=== PATIENT | male | born 1965 | race Caucasian/White ===

== ENCOUNTER 2019-02-07 10:45 | Inpatient (IN) ==
--- NOTE | 2019-02-07 12:32 | Diag Imaging Result Doc PS360 ---
EXAM: US SCROTUM HISTORY: R/O torsion TECHNIQUE: Scrotal ultrasound COMPARISON: None. FINDINGS: Normal size and echotexture to each testicle. No testicular mass. Blood flow is symmetric. Small left hydrocele. There are several left epididymal cysts. The largest measures 9 mm. The epididymis is enlarged with increased flow. There is also a 1.3 cm right epididymal cyst. The right epididymis is not enlarged. IMPRESSION: Left-sided epididymitis Electronically signed by Zack Story 02/07/2019 12:29 PM
[2019-02-07] MEDS: TORADOL IV PRN ×2 (12:36→18:55)
[2019-02-07] MEDS: LEVAQUIN 500 MG/D5W 500 MG/100 ML IVPB IV SCH (12:36)
[2019-02-07] MEDS: NS 1,000 ML IV SCH (12:36)
[2019-02-07] MEDS: XANAX PO PRN (12:41)
[2019-02-07] MEDS: CATAPRES PO SCH ×2 (12:41→21:59)
[2019-02-07 12:53] LABS: HEMATOCRIT 40.3 % (42.0-52.0); HEMOGLOBIN 13.6 g/dL (14.0-18.0); MCH 28.3 PG (27-31); MCHC 33.7 g/dL (33-37); MCV 83.8 FL (81-99); MPV 9.3 FL (7.4-10.4); RBC 4.81 XMIL (4.7-6.1); RDW 13.6 % (11.5-14.5); WBC 25.09 X1000 (4.8-10.8)
[2019-02-07 13:15] LABS: AGAP 16; BUN 11 mg/dL (8-22); C REACTIVE PROT QUANT 37.63 mg/L (0.00-5.00); CALCIUM 9.2 mg/dL (8.8-10.2); CHLORIDE 95 mmol/L (98-107); COSMO 266; CREATININE 0.8 mg/dL (0.7-1.2); ESTIMATED GFR > 60; GLUCOSE 129 mg/dL (70-104); POTASSIUM 3.3 mmol/L (3.5-5.1); SODIUM 132 mmol/L (136-145); TCO2 21 mmol/L (25-35)
[2019-02-07] MEDS: POTASSIUM CHLORIDE 20 MEQ/SWI 20 MEQ/100 ML IVPB IV SCH ×2 (16:45→20:48)
[2019-02-07] MEDS ORDERED: SODIUM CHLORIDE 0.9% INJ SCH (21:30)
[2019-02-07] MEDS: LOVENOX SUBQ SCH (21:59)
[2019-02-07] MEDS: NICODERM PATCH TD PRN (21:59)
[2019-02-07] MEDS: PEPCID IV SCH (21:59)
--- NOTE | 2019-02-07 22:01 | HISTORY AND PHYSICAL ---
CHIEF COMPLAINT: Sudden onset of left testicle swelling and pain. HISTORY OF PRESENT ILLNESS: He is a 53-year-old white male who basically came to my office this morning, unable to get out of the parking lot. I was called to see the patient in the car. The patient complains of 1 day history of left testicle pain. It is swollen, obviously tender, admitted directly for left testicular pain, possible epididymitis, rule out torsion. After workup, the laboratory data shows white cell count 25,000, he was dehydrated, and ultrasound showed no torsion. Basically, admitted to the hospital for IV fluids, replace the potassium, IV antibiotics, elevation of the testicle to relieve the pain, along with a Toradol shot. As a result, a hospital admission was warranted. PAST MEDICAL HISTORY: 1. Hypertension. 2. Generalized anxiety disorder. 3. Nicotine dependency. 4. History of nontraumatic ruptured biceps tendon. 5. Right and left umbilical hernia. PAST SURGICAL HISTORY: None. ALLERGIES: Not known. MEDICATIONS: Reported: 1. Xanax 2 mg t.i.d. as needed. 2. Clonidine 0.1 mg p.o. b.i.d. 3. Aripiprazole 5 mg daily. 4. Zoloft 100 mg daily. 5. Protonix 40 mg daily. 6. Lisinopril 20 mg daily. SOCIAL HISTORY: ; 3 kids. 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 Lives in [place]. Smoking 1 pack per day. No alcohol. FAMILY HISTORY: Father is 69 years old with hypertension. Mom is diabetic. Last physical in my office in 2015. Last PSA in 2014. Colonoscopy in November 2014. REVIEW OF SYSTEMS: HEENT: No headache, no dizziness, no earache, no sore throat. Neck: No goiter, no lymphadenopathy, no bruit. Cardiopulmonary: No chest pain, shortness of breath, PND, orthopnea. GI: No nausea, vomiting, abdominal pain. Umbilical hernia noted. : Severe left testicle pain, 1 day duration. No dysuria. No BPH symptoms. Extremities: No swelling of legs. No joint pain. Neurologic: No focal symptoms or weakness. PHYSICAL EXAMINATION: VITAL SIGNS: 6 feet 1 inch. 169 pounds. Temperature is 98.6 degrees, pulse 95, blood pressure 158/98. HEENT: Atraumatic, normocephalic. Pupils equal, react to light. TMs are normal. Dry mucous membranes. NECK: Supple. No lymphadenopathy. No goiter. CHEST: Bilateral air entry. HEART: Sounds are regular, tachycardic. ABDOMEN: Belly is soft, nontender. Umbilical hernia present. GENITALIA: Left testicle diffusely swollen, tender. Unable to do detailed exam for transillumination due to excruciating pain. NEUROLOGIC: No neurological deficits. INVESTIGATIONS: CBC: White cell count 25, hematocrit 40, platelets 331,000. Sodium 132, potassium 3.3, BUN 11, creatinine 0.8, glucose 128. Urine cultures are pending. Ultrasound of the reported left-sided epididymitis: Small left hydrocele noted. ASSESSMENT AND PLAN: A 53-year-old white male admitted to the hospital with: 1. Excruciating left-sided pain with epididymitis, associated with leukocytosis, dehydration. Plan is intravenous fluids. Replace the potassium. Intravenous Levaquin. Pain control with Toradol. 2. Bipolar disorder, anxiety, under the care of Dr. Christian with Zoloft, Xanax, aripiprazole. 3. Hypertension, on clonidine and lisinopril. 4. Deep venous thrombosis and gastrointestinal prophylaxis as per the order sheet. 5. Follow up.. cc: Yohannes Flores MD
[2019-02-08] MEDS: NS 1,000 ML IV SCH ×2 (01:01→16:24)
[2019-02-08] MEDS: TORADOL IV PRN ×2 (04:03→16:25)
[2019-02-08 07:45] LABS: BASO% 0.1 % (0.0-0.8); EOS% 0.1 % (0.0-10.0); HEMATOCRIT 40.4 % (42.0-52.0); HEMOGLOBIN 13.4 g/dL (14.0-18.0); IMM GRAN% 0.3 % (0.0-0.5); LYMPH# 1.94 X1000 (1.2-3.4); LYMPH% 7.1 % (20.5-51.1); MCHC 33.2 g/dL (33-37); MCV 84.5 FL (81-99); MONO# 1.08 X1000 (0.11-0.59); MPV 9.5 FL (7.4-10.4); NEUT# 24.01 X1000 (1.4-6.5); NEUT% 88.4 % (42.2-75.2); PLT 299 X1000 (130-400); RBC 4.78 XMIL (4.7-6.1); RDW 13.6 % (11.5-14.5); WBC 27.18 X1000 (4.8-10.8)
[2019-02-08 07:46] LABS: BASO# 0.04 X1000 (0.0-0.2); EOS# 0.02 X1000 (0.0-0.7); IMM GRAN# 0.09 X1000 (0.0-0.04)
[2019-02-08 07:57] LABS: AGAP 11; BUN 11 mg/dL (8-22); CALCIUM 9.4 mg/dL (8.8-10.2); CHLORIDE 96 mmol/L (98-107); COSMO 264; CREATININE 0.8 mg/dL (0.7-1.2); ESTIMATED GFR > 60; GLUCOSE 129 mg/dL (70-104); POTASSIUM 3.7 mmol/L (3.5-5.1); SODIUM 131 mmol/L (136-145); TCO2 24 mmol/L (25-35)
[2019-02-08 08:23] LABS: BANDS 11 % (0-1); LYMPHS 6 % (21-51); MONO 1 % (1-9); SEGS 82 % (42-75)
[2019-02-08] MEDS: CATAPRES PO SCH ×2 (10:03→20:36)
[2019-02-08] MEDS: PEPCID IV SCH ×2 (10:04→20:37)
[2019-02-08] MEDS: ZOSYN 3.375 GM in NS 50 ML IV SCH ×3 (10:04→20:36)
[2019-02-08] MEDS: LEVAQUIN 500 MG/D5W 500 MG/100 ML IVPB IV SCH (13:17)
[2019-02-08] MEDS: XANAX PO PRN ×2 (16:24→20:53)
--- NOTE | 2019-02-08 20:16 | CONSULTATION ---
DATE OF CONSULTATION: 02/08/2019 ATTENDING AND REFERRING PHYSICIAN: Dr. Flores. HISTORY OF PRESENT ILLNESS: This 53-year-old male was admitted with severe left scrotal pain and swelling. His scrotal ultrasound was consistent with left epididymo-orchitis. The patient states this has never occurred before. He states that several days ago he had some pain in the left scrotum and may have seen some blood in his urine. He states that he thought he was getting better, but then his scrotum started swelling and he was having significant pain. He denies any medications for his prostate. He denies any history of sexually transmitted diseases or urinary infections. He has had no previous urologic surgery. He has no history of kidney stones. He states his father had kidney stones. PAST MEDICAL HISTORY: 1. Hypertension. 2. Anxiety. 3. History of ruptured biceps tendons bilaterally. CURRENT MEDICATIONS: Documented on the chart. PAST SURGICAL HISTORY: [place] teeth extraction. SOCIAL HISTORY: He denies alcohol use. He does smokes cigarettes. He is a [employer] and works hard every day. ALLERGIES: No known drug allergies. REVIEW OF SYSTEMS: Usually in good health. He denies any problems with diabetes, strokes, seizures, recent pulmonary or bowel problems. He states he does have a small umbilical hernia. PHYSICAL EXAMINATION: General: A normally developed, well nourished, age apparent, white male, oriented in all ways and cooperative. HEENT: Normal for age. Lungs: Clear. Cardiovascular: Regular rate and rhythm. Abdomen: Flat, soft, nontender. No hepatosplenomegaly or masses. Normal bowel sounds. There is a small reducible umbilical hernia. : Uncircumcised male. Right scrotum is palpably normal. Left scrotum is markedly swollen. There is an indurated testis and epididymis with some tenderness. That appears to be getting better. No inguinal hernias. Rectal: Deferred. Extremities: No clubbing, cyanosis, or edema. Neurologic: No focal deficits. LABORATORY EVALUATION: Has a white count of 27, hemoglobin 13.4, hematocrit of 40, and platelets are 299,000. Serum electrolytes have a sodium of 131, a potassium of 3.7, chloride 96, bicarb 24, BUN 11, creatinine 0.8. A urinalysis is not available. A urine culture preliminary is no growth. Scrotal ultrasound is as noted in the History of Present Illness. IMPRESSION: 1. Left epididymo-orchitis. 2. Enlarged prostate, with some obstructive voiding. RECOMMEND: 1. Continuing intravenous antibiotics. 2. Start Flomax 0.4 mg b.i.d. 3. Scrotal support when he is up walking. Thank you for this consultation. cc: MD Yohannes Barajas MD
[2019-02-08] MEDS: FLOMAX PO SCH (20:37)
[2019-02-08] MEDS: LOVENOX SUBQ SCH (20:37)
--- NOTE | 2019-02-08 20:50 | PROGRESS NOTE ---
DATE: 02/08/2019 Patient is still excruciating pain. EXAM: Temperature is 97 degrees. Vitals are stable.HEENT: Within normal limits. Neck: Supple. Chest: Clear. Heart: Sounds are regular. Belly: Is soft, nontender. Left testicle is swollen with epididymitis with hydrocele. INVESTIGATIONS: White cell count 27.18, hematocrit 40, platelets 299,000. Sodium 131, potassium 3.7. Urine cultures are pending. ASSESSMENT AND PLAN: 1. Left epididymoorchitis. Increased white cell count 27. Add Zosyn with Levaquin and consult with Dr. Mccoy' group. Continue pain medicines, Toradol, elevation, DVT, GI prophylaxis and nicotine patch for Nicotrol patch. 2. History of chronic anxiety under the care of Dr. Christian. The patient is taking only Xanax as needed. 3. Hyponatremia, IV fluids and will monitor daily CBC and SMA 7. Will follow up. LEVEL OF DOCUMENTATION: 25 minutes. cc: Yohannes Flores MD
[2019-02-09] MEDS: ZOSYN 3.375 GM in NS 50 ML IV SCH ×2 (03:49→10:27)
[2019-02-09] MEDS: NS 1,000 ML IV SCH (05:28)
[2019-02-09] MEDS: TORADOL IV PRN (06:27)
[2019-02-09 07:18] VITALS: BP 118/74
[2019-02-09 07:31] LABS: BASO# 0.03 X1000 (0.0-0.2); BASO% 0.1 % (0.0-0.8); EOS# 0.06 X1000 (0.0-0.7); EOS% 0.3 % (0.0-10.0); HEMATOCRIT 37.9 % (42.0-52.0); HEMOGLOBIN 12.5 g/dL (14.0-18.0); IMM GRAN# 0.08 X1000 (0.0-0.04); IMM GRAN% 0.4 % (0.0-0.5); LYMPH# 1.98 X1000 (1.2-3.4); LYMPH% 9.4 % (20.5-51.1); MCH 27.8 PG (27-31); MCV 84.4 FL (81-99); MONO# 1.01 X1000 (0.11-0.59); MONO% 4.8 % (1.7-9.3); MPV 9.1 FL (7.4-10.4); NEUT# 17.91 X1000 (1.4-6.5); PLT 283 X1000 (130-400); RBC 4.49 XMIL (4.7-6.1); RDW 13.6 % (11.5-14.5); WBC 21.07 X1000 (4.8-10.8)
[2019-02-09 08:00] LABS: AGAP 12; BUN 13 mg/dL (8-22); CALCIUM 8.8 mg/dL (8.8-10.2); CHLORIDE 102 mmol/L (98-107); COSMO 277; ESTIMATED GFR > 60; GLUCOSE 121 mg/dL (70-104); POTASSIUM 3.7 mmol/L (3.5-5.1); SODIUM 138 mmol/L (136-145); TCO2 24 mmol/L (25-35)
[2019-02-09 08:04] LABS: BANDS 7 % (0-1); EOS 2 % (1-10); LARGE PLATELETS 1+; LYMPHS 12 % (21-51); MONO 4 % (1-9); SEGS 75 % (42-75)
[2019-02-09] MEDS: PEPCID IV SCH (10:26)
[2019-02-09] MEDS: FLOMAX PO SCH (10:26)
[2019-02-09] MEDS: XANAX PO PRN (10:26)
[2019-02-09] MEDS: CATAPRES PO SCH (10:27)
[2019-02-09] MEDS: NICODERM PATCH TD PRN (10:27)
[2019-02-09] MEDS: LEVAQUIN 500 MG/D5W 500 MG/100 ML IVPB IV SCH (11:46)
== END 2019-02-09 15:49 | disposition left against medical advice (07) | DRG 728 ==
LOC: DIRADM 10:45 → 3N 11:10
PROVIDERS: ADMIT Internal Medicine; ATTEND Internal Medicine